=== PATIENT | male | born 1980 ===

== ENCOUNTER 2020-11-15 11:35 | Outpatient (REF) | payer OTHER, SELFPAY ==
[2020-11-15 13:51] LABS: Alanine Aminotransferase 27 U/L (0-40); Albumin Level 4.4 g/dL (3.5-5.0); Alkaline Phosphatase 113 U/L (39-117); Anion Gap 11 (12-20); Aspartate Amino Transferase 16 U/L (5-37); Bilirubin Total 0.5 mg/dL (0.0-1.0); Blood Urea Nitrogen 11 mg/dL (9-16); Calcium 9.4 mg/dL (8.4-10.2); Carbon Dioxide 28 mmol/L (22-29); Chloride 104 mmol/L (96-108); Cholesterol 278 mg/dL; Estimated Glomerular Filt Rate > 60; Glucose Fasting 109 mg/dL (60-99); HDL Cholesterol 41 mg/dL; LDL Cholesterol Calculated 166 mg/dl; Potassium 4.3 mmol/L (3.3-5.1); Sodium 139 mmol/L (135-145); Total Protein 7.2 g/dL (6.5-8.0); Triglycerides 357 mg/dL
[2020-11-15 14:14] LABS: TSH reflex Free T4 1.03 uIU/mL (0.32-4.0)
[2020-11-16 22:12] LABS: Transglutaminase IgA 1 U/mL
== END 2020-11-15 11:36 | disposition home or self-care (01) ==
LOC: HO.WFDLDS 11:35
PROVIDERS: PCP Family Medicine; Visit Provider Family Medicine
DX: Z00.00 Encounter for general adult medical examination without abnormal findings (principal); R14.0 Abdominal distension (gaseous)
CPT/HCPCS: 36415; 80053; 80061; 83516; 84443

== ENCOUNTER 2020-12-07 12:48 | Outpatient (REF) | payer OTHER, SELFPAY ==
--- NOTE | ~2020-12-07 | XR_ITS ---
EXAMINATION: XR SHOULDER, RIGHT CLINICAL INFORMATION: Right shoulder pain. COMPARISON: None TECHNIQUE: AP external rotation, Grashey, scapular Y, and axillary views of the right shoulder. FINDINGS: Small acromioclavicular marginal osteophytes. Inferior glenohumeral joint space narrowing with marginal osteophytes. No fracture or dislocation. No osseous erosion. No abnormal soft tissue calcification. XR/XR shoulder RT min 2V IMPRESSION: [id number] glenohumeral and mild acromioclavicular osteoarthritis.
== END 2020-12-07 12:49 | disposition home or self-care (01) ==
LOC: HO.XRAY 12:48
PROVIDERS: PCP Family Medicine; Visit Provider Family Medicine
DX: M25.511 Pain in right shoulder (principal)
CPT/HCPCS: 73030

== ENCOUNTER 2020-12-13 07:00 | Outpatient (RCR) | payer OTHER, SELFPAY | END 2021-04-08 14:41 | disposition home or self-care (01) | LOC: HO.PTWFD 07:00 | PROVIDERS: PCP Family Medicine; Visit Provider Family Medicine | DX: M75.21 Bicipital tendinitis, right shoulder (principal) | CPT/HCPCS: 97110; 97140; 97161; 97530; 97535 ==

== ENCOUNTER 2023-10-23 14:23 | Outpatient (AMB) | payer OTHER, SELFPAY ==
--- NOTE | 2023-10-23 13:57 | A.OFFPC_ITS ---
Vital Signs 10/23/23 14:27 Height 5 ft 8 in Weight 280 lb BMI 42.6 BP 132/80 Blood Pressure Location Lt brachial Position Sitting Pulse 100 Pulse Source Pulse Oximeter Pulse Oximetry (%) 95 Oxygen Delivery Method Room Air Intake Visit Reasons: follow up Intake Note: Patient is here to follow up on right shoulder pain, and low energy for about a year, progressively gets worse. Patient would like refill of the diclofenac cream. Allergies oxycodone [From PERCOCET] Allergy (Unknown, Verified 10/23/23 14:30) ITCHING Medication List - Last Reconciled 10/23/23 by Vinicius Wadsworth MD diclofenac sodium 1% 2 grams topical QID 30 days Tobacco use date assessed: 10/23/23 Dental Screening Dental Screen Date: 10/23/23 Did you have a dental visit in the last 12 months?: Yes Did you have a dental problem in the last 6 months where you did not have access to dental care?: No Was dental information given to patient?: Patient has dentist HPI follow up HPI Details 43 y/o male [facility]. Has complaints of fatigue x1 year that has been progressively getting worse. Pt notes he does wake up every half hour due to his R shoulder. He states his does not notice him snore/wake up gasping for air. Also has ongoing complaints of R shoulder pain. PHQ-9 13, AMELIA-7 12 today. Pt states he is willing to give therapy a chance. HPI Comments History of Present Illness Details Documentation assistance for Vinicius Wadsworth MD, was provided by Jevon Wright, Gauge Maker Apprentice on 10/23/2023 at 2:58 PM EST. I, Dr. Wadsworth, have read, observed, and verified documentation. [facility] Medical History (Updated 10/23/23 @ 15:12 by Jevon Wright) Right shoulder pain Fracture of left clavicle Surgical History (Updated 10/23/23 @ 14:34 by Vy Riley CMA) History of right shoulder replacement Family History (Updated 10/23/23 @ 14:35 by Vy Riley CMA) Father Substance abuse in family Mother Substance abuse in family Social History Housing: House Alcohol intake: current Alcohol intake frequency: a few times a month Alcohol type: beer and hard liquor Patient Tobacco Use Status: Former Tobacco user Quit Date: Last cigarette a month ago. Cigarettes Per Day: 6 Years Smoked: 10 e-Cigarette/Vaping Use: Never Used Second Hand Smoke Exposure: No service: No Current occupational status: employed Cognitive needs: No Hearing needs: No Vision needs: No Questionnaire PHQ-9 Over the last 2 weeks, how often have you been bothered by any of the following problems? 1. Little interest or pleasure in doing things: not at all 2. Feeling down, depressed, or hopeless: several days 3. Trouble falling or staying asleep, or sleeping too much: nearly every day 4. Feeling tired or having little energy: nearly every day 5. Poor appetite or overeating: not at all 6. Feeling bad about yourself - or that you are a failure or have let yourself or your family down: several days 7. Trouble concentrating on things, such as reading the newspaper or watching television: more than half the days 8. Moving or speaking so slowly that other people could have noticed. Or the opposite - being so fidgety or restless that you have been moving around a lot more than usual: nearly every day 9. Thoughts that you would be better off or of hurting yourself in some way: not at all Total score: 13 Depression Screening Interpretation: Positive Depression Screening Done: Yes [id number] - PHQ-9 Billing: Yes Source: Developed by Drs. Gamaliel Salmon, Leslye Martinez, Yemi Carrillo and colleagues, with an educational anupam from [employer]. Thrive Questionnaire Date Thrive assessed: 10/23/23 I am a: Patient What is your living situation today?: I have a steady place to live Within the past 12 months, did the food you bought not last and you didn't have the money to get more?: Sometimes True Within the past 12 months, did you worry whether your food would run out before you got money to buy more?: Sometimes True Do you have trouble paying for medicines?: No Do you have trouble getting transportation to medical appointments?: No Do you have trouble paying your heating and electricity bill?: No Do you have trouble taking care of your child, family member or friend?: No Do you have trouble with day-to-day activities such as bathing, preparing meals, shopping, managing finances, etc.?: Yes Are you currently unemployed and looking for a job?: Yes Are you interested in more education?: Yes THRIVE Score: 2 AUDIT C Alcohol Use Questionnaire (AUDIT-C) 1. How often do you have a drink containing alcohol?: Never 3. How often do you have six or more drinks on one occasion?: Never Total Score: 0 AMELIA-7 AMB Questionnaire AMELIA-7 Date AMELIA - 7 assessed: 10/23/23 Feeling nervous, anxious, or on edge: 3 = Nearly every day Not being able to stop or control worryin = Several days Worrying too much about different things: 0 = Not at all Trouble relaxin = Nearly every day Being so restless that it is hard to sit still: 2 = More than half the days Becoming easily annoyed or irritable: 3 = Nearly every day Feeling afraid as if something awful might happen: 0 = Not at all Total AMELIA-7 score (0-4 normal; 5-9 mild; 10-14 moderate; 15-21 severe): 12 Source: Developed by Drs. Gamaliel Salmon, Leslye Martinez, Yemi Carrillo and colleagues, with an educational anupam from [employer]. AMELIA-7 Assessment Billing AMELIA-7 Assessment Tool: AMELIA-7 Assessment 93555 Review of Systems Const Reports fatigue, Denies headache(s) and Denies weakness ENT Denies dizziness and Denies headache(s) Card Denies dyspnea Resp Denies cough, Denies dyspnea, Denies wheezing and Denies other (shortness of breath) Musc Details: R shoulder pain Denies numbness and Denies tingling Neuro Denies dizziness, Denies headache(s), Denies numbness, Denies tingling and Denies weakness Psych Reports anxiety and Reports depression Endo Reports fatigue Aller/Immun Denies wheezing Physical exam (Primary Care) Vital Signs: Last Vital Signs Pulse 100 10/23/23 14:27 BP 132/80 10/23/23 14:27 Pulse Ox 95 10/23/23 14:27 Oxygen Delivery Method Room Air 10/23/23 14:27 BMI result Body Mass Index 42.6 Tobacco/Smoking Status: Tobacco use Status Tobacco use date assessed 10/23/23 10/23/23 14:45 Patient Tobacco Use Status Former Tobacco user 10/23/23 14:45 e-Cigarette/Vaping Use Never Used 10/23/23 13:58 PHQ-9: PHQ-9 Score PHQ-9: Total score 13 10/23/23 14:59 Depression Screening Interpretation: Positive Thrive Assessment: Date of Thrive Assessment Date Thrive assessed 10/23/23 10/23/23 14:45 Const General: well developed; No acute distress Nutritional Appearance: well nourished Orientation/consciousness: patient oriented x3 HENMT Head: Yes normocephalic and Yes atraumatic Eyes General: appearance normal, both eyes and all related structures Pupils: Equal, round and reactive pupils present EOM: EOMs intact bilaterally Resp Effort & Inspection: normal respiratory effort Auscultation: clear to auscultation bilaterally Cardio Rate: regular rate Rhythm: regular rhythm Heart sounds: S1 normal heart sound present, S2 normal heart sound present, no gallops, no murmurs and no rubs Neuro General: patient oriented x3 and gait normal Cranial nerves: Yes Equal, round and reactive pupils present Psych Affect: normal affect Assessment and Plan Assessment & Plan (1) Right shoulder pain: Code(s): M25.511 - Pain in right shoulder Plan: Ongoing?right?shoulder?pain Patient?is?s/p?right?shoulder?replacement?but?also?s /p?fall?and?injury?is?a?worker's?comp?injury He?is?awaiting?further?evaluation?and?treatment. Meantime?I?gave?him?a?script?for?cyclobenzaprine?and?diclofenac?gel (2) Fatigue: Code(s): R53.83 - Other fatigue Plan: Significant?fatigue?and?daytime?sleepiness. Patient?says?he?wakes?up?very?frequently?at?night He?attributes?waking?up?to?his?shoulder?pain Will?give?him?a?short?course?of?muscle?relaxant?as?above?as?well?as?topical?pain ?reliever I?am?concerned?that?he?may?have?sleep?apnea?however - see?below Checking?labs?and?we?can?follow-up?on?this?at?his?next?visit (3) Hypersomnia: Code(s): G47.10 - Hypersomnia, unspecified Plan: Hypersomnia?which?may?be?due?to?poor?sleep?secondary?to?pain?but?may?be?due?to?s leep?apnea Referred?to?Sleep?Medicine?to?rule?this?out (4) Depression with anxiety: Code(s): F41.8 - Other specified anxiety disorders Plan: Scoring?high?on?PHQ-9?and?amelia?7 He?declines?medication?at?this?time?but?accepts?a?referral?for?therapy?so?I?have ?referred?him?to?the?nurse?navigator?to?help?connect?him?with?a?therapist. Orders: Orders Comprehensive Met. Panel Today R53.83 - Other fatigue Complete Blood Count Auto Diff Today R53.83 - Other fatigue, Z00.00 - Encounter for general adult medical examination without abnormal findings Erythrocyte Sedimentation Rate Today R53.83 - Other fatigue CRP High Sensitivity Today R53.83 - Other fatigue Testosterone, Free/Total Today R53.83 - Other fatigue TSH reflex Free T4 Today R53.83 - Other fatigue, Z00.00 - Encounter for general adult medical examination without abnormal findings Referrals Sleep Medicine Referral G47.10 - Hypersomnia, unspecified Nurse Navigator Referral F41.8 - Other specified anxiety disorders Medications: Changed From cyclobenzaprine 10 mg PO TID 10 days PRN 30 tabs 0RF muscle spasm To cyclobenzaprine 10 mg PO TID 5 days PRN 15 tabs 0RF muscle spasm Refilled diclofenac sodium 1% apply to single shoulder, elbow, wrist or hand; for hand includes palm/fingers/back of hand 2 grams topical QID 30 days 100 grams 2RF Coding Level of Care Code Est Pt Level 4 (71362) Diagnoses Right shoulder pain M25.511 Fatigue R53.83 Hypersomnia G47.10 Depression with anxiety F41.8 Additional Codes AMELIA-7 Assessment Billing - AMELIA-7 Assessment Tool: AMELIA-7 Assessment [id number] ([id number])
[2023-10-23 14:27] VITALS: BP 132/80; PULSE 100; O2SAT 95; BMI 42.6
== END 2023-10-23 15:20 | disposition home or self-care (01) ==
PROVIDERS: PCP Family Medicine; Visit Provider Family Medicine
DX: M25.511 Pain in right shoulder (principal); R53.83 Other fatigue; G47.10 Hypersomnia, unspecified; F41.8 Other specified anxiety disorders
CPT/HCPCS: 99214

== ENCOUNTER 2023-11-19 07:52 | Outpatient (REF) | payer OTHER, SELFPAY ==
[2023-11-19 08:01] LABS: MANUAL DIFF FLAG NO
[2023-11-19 08:41] LABS: Basophils Absolute Auto 0.1 X10*3/uL (0.0-0.2); Eosinophils Absolute Auto 0.6 X10*3/uL (0.0-0.4); Eosinophils Percent Auto 7.3 % (0-4); Hematocrit 44.4 % (42.0-52.0); Imm Gran Abs Auto 0.03 X10*3/uL (0.00-0.03); Imm Gran Pct Auto 0.4 % (0.0-0.4); Lymphocytes Absolute Auto 2.6 X10*3/uL (1.2-4.9); Lymphocytes Percent Auto 30.5 % (20-40); Mean Corpuscular HGB Conc 33.8 g/dl (31.0-36.0); Mean Corpuscular Hemoglobin 29.8 pg (27.0-33.0); Mean Corpuscular Volume 88.1 fL (80.0-98.0); Mean Platelet Volume 9.9 fL (9.4-12.4); Monocytes Absolute Auto 0.6 X10*3/uL (0.1-1.2); Neutrophils Absolute Auto 4.5 x10*3/uL (2.0-8.3); Neutrophils Percent Auto 53.8 % (45-73); Platelet Count 323 X10*3/uL (160-400); Red Blood Count 5.04 X10*6/uL (4.60-5.80); Red Cell Distribution Width 13.2 % (11.0-16.0); White Blood Count 8.4 X10*3/uL (4.8-10.8)
[2023-11-19 09:09] LABS: Alanine Aminotransferase 34 U/L (0-40); Albumin Level 4.1 g/dL (3.5-5.0); Alkaline Phosphatase 106 U/L (39-117); Anion Gap 12 (12-20); Aspartate Amino Transferase 18 U/L (5-37); Bilirubin Total 0.4 mg/dL (0.0-1.0); Blood Urea Nitrogen 13 mg/dL (9-16); Calcium 9.6 mg/dL (8.4-10.2); Carbon Dioxide 26 mmol/L (22-29); Chloride 106 mmol/L (96-108); Estimated Glomerular Filt Rate > 60; Glucose Random 125 mg/dL (60-115); Sodium 140 mmol/L (135-145); Total Protein 7.3 g/dL (6.5-8.0)
[2023-11-19 09:24] LABS: Erythrocyte Sedimentation Rate 13 MM/HR (0-15)
[2023-11-19 09:29] LABS: TSH reflex Free T4 1.89 uIU/mL (0.32-4.0)
[2023-11-20 10:38] LABS: CRP High Sensitivity 8.4 mg/L
[2023-11-23 18:03] LABS: Testosterone, Free 57.1 pg/mL (35.0-155.0); Testosterone, Total 317 ng/dL (250-1100)
== END 2023-11-19 07:53 | disposition home or self-care (01) ==
LOC: HO.LAB 07:52
PROVIDERS: PCP Family Medicine; Visit Provider Family Medicine
DX: Z00.00 Encounter for general adult medical examination without abnormal findings (principal); R53.83 Other fatigue
CPT/HCPCS: 36415; 80053; 84402; 84403; 84443; 85025; 85652; 86141

== ENCOUNTER 2023-11-20 14:58 | Outpatient (AMB) | payer OTHER, SELFPAY ==
--- NOTE | 2023-11-20 14:53 | A.OFFPC_ITS ---
Intake Visit Reasons: f/u labs via telemedicine Intake Note: Patient is scheduled for lab review today. 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 Allergies oxycodone [From PERCOCET] Allergy (Unknown, Verified 11/20/23 14:54) ITCHING Medication List - Last Reconciled 11/20/23 by Vinicius Wadsworth MD diclofenac sodium 1% 2 grams topical QID 30 days Tobacco use date assessed: 10/23/23 Dental Screening Dental Screen Date: 11/20/23 Did you have a dental visit in the last 12 months?: Yes Did you have a dental problem in the last 6 months where you did not have access to dental care?: No Was dental information given to patient?: Patient has dentist HPI f/u labs via telemedicine HPI Details 43 y/o male presents to f/u fatigue/achy muscles and labs via telemedicine. Labs were drawn 11/19/23. Reviewed labs with pt. Labs unrevealing for fatigue. Had referred him to Sleep Medicine - hypersomnia and non restorative sleep. She has an appt. with sleep medicine in February. [facility] Medical History Right shoulder pain Fracture of left clavicle Surgical History History of right shoulder replacement Family History Father Substance abuse in family Mother Substance abuse in family Social History Housing: House Alcohol intake: current Alcohol intake frequency: a few times a month Alcohol type: beer and hard liquor Patient Tobacco Use Status: Former Tobacco user Cigarettes Per Day: 6 Years Smoked: 10 Packs per year/per ci.00 e-Cigarette/Vaping Use: Never Used Second Hand Smoke Exposure: No service: No Current occupational status: employed Cognitive needs: No Hearing needs: No Vision needs: No Questionnaire Thrive Questionnaire Date Thrive assessed: 10/23/23 AMELIA-7 AMB Questionnaire AMELIA-7 Date AMELIA - 7 assessed: 10/23/23 Source: Developed by Drs. Gamaliel Salmon, Leslye Martinez, Yemi Carrillo and colleagues, with an educational anupam from [employer]. Review of Systems Const Denies chills, Denies fatigue, Denies fever(s), Denies headache(s) and Denies weakness ENT Denies dizziness and Denies headache(s) Card Denies dyspnea Resp Denies cough, Denies dyspnea, Denies wheezing and Denies other (shortness of breath) Musc Denies numbness and Denies tingling Neuro Denies dizziness, Denies headache(s), Denies numbness, Denies tingling and Denies weakness Psych Denies anxiety and Denies depression Endo Denies fatigue Aller/Immun Denies wheezing Physical exam (Primary Care) Tobacco/Smoking Status: Tobacco use Status Tobacco use date assessed 10/23/23 11/20/23 14:57 Patient Tobacco Use Status Former Tobacco user 11/20/23 14:57 e-Cigarette/Vaping Use Never Used 11/20/23 14:57 Thrive Assessment: Date of Thrive Assessment Date Thrive assessed 10/23/23 11/20/23 14:57 Telehealth Telehealth Telehealth Platform: Telephone Location of provider rendering services: practice address Location of patient: address on file Patient Identification confirmed using: Name, : Yes Telehealth method: voice only Patient verbally consented to treatment: Yes Patient verbally consented to billing insurance company: Yes Patient informed of any privacy concerns related to visit: Yes Minutes spent on Phone/Video with Pt.: 6 Assessment and Plan Assessment & Plan (1) Fatigue: Code(s): R53.83 - Other fatigue Plan: No?anemia?and?thyroid?levels?are?okay Awaiting?testosterone?levels?and?will?call?patient?if?abnormal Random?blood?sugar?is?elevated?as?it?has?been?elevated?previously. Will?follow- up?on?this?at?his?next?visit?but?I?doubt?this?is?the?underlying?cause?of?his?fat igue He?does?have?an?elevated?CRP?and?also?his?eosinophils?are?somewhat?elevated. Possible?allergy.??He?can?trial?Zyrtec. Ultimately?still?suspect?that?this?is?due?to?sleep?apnea?and?I?have?referred?him ?to?Sleep?Medicine.??Has?an?appointment?in?February?and?we?can?follow- up?after?that. (2) Hypersomnia: Code(s): G47.10 - Hypersomnia, unspecified Plan: As?above,?patient?has?an?appointment?with?sleep?medicine?in?February Coding Level of Care Code Tele Est Pt Level 2 (76527) Diagnoses Fatigue R53.83 Hypersomnia G47.10
== END 2023-11-20 16:35 | disposition home or self-care (01) ==
LOC: HO.HMGFM 14:58
PROVIDERS: PCP Family Medicine; Visit Provider Family Medicine
DX: R53.83 Other fatigue (principal); G47.10 Hypersomnia, unspecified
CPT/HCPCS: 99441

== ENCOUNTER 2024-07-04 10:13 | Outpatient (AMB) | payer OTHER, SELFPAY | END 2024-07-04 17:05 | disposition home or self-care (01) | PROVIDERS: PCP Family Medicine; Visit Provider Family Medicine ==

== ENCOUNTER → 2024-07-04 10:13 | Outpatient (BNVA) | payer SELFPAY | PROVIDERS: PCP Family Medicine; Visit Provider Family Medicine ==

== ENCOUNTER 2024-08-26 06:29 | Outpatient (REF) | payer OTHER, SELFPAY ==
[2024-08-26 06:42] LABS: MANUAL DIFF FLAG NO
[2024-08-26 07:16] LABS: Basophils Absolute Auto 0.1 X10*3/uL (0.0-0.2); Basophils Percent Auto 0.9 % (0-2); Eosinophils Absolute Auto 0.6 X10*3/uL (0.0-0.4); Eosinophils Percent Auto 5.7 % (0-4); Hematocrit 45.4 % (42.0-52.0); Hemoglobin 15.2 g/dl (14.0-18.0); Imm Gran Abs Auto 0.04 X10*3/uL (0.00-0.03); Imm Gran Pct Auto 0.4 % (0.0-0.4); Lymphocytes Absolute Auto 3.2 X10*3/uL (1.2-4.9); Lymphocytes Percent Auto 32.6 % (20-40); Mean Corpuscular HGB Conc 33.5 g/dl (31.0-36.0); Mean Corpuscular Hemoglobin 29.1 pg (27.0-33.0); Mean Corpuscular Volume 86.8 fL (80.0-98.0); Mean Platelet Volume 9.6 fL (9.4-12.4); Monocytes Absolute Auto 0.7 X10*3/uL (0.1-1.2); Monocytes Percent Auto 6.9 % (2-11); Neutrophils Absolute Auto 5.2 x10*3/uL (2.0-8.3); Neutrophils Percent Auto 53.5 % (45-73); Platelet Count 354 X10*3/uL (160-400); Red Blood Count 5.23 X10*6/uL (4.60-5.80); Red Cell Distribution Width 13.1 % (11.0-16.0); White Blood Count 9.7 X10*3/uL (4.8-10.8)
[2024-08-26 07:24] LABS: Estimated Average Glucose 114 mg/dL; Hemoglobin A1C 149.8935 umol/L; Hemoglobin A1c % 5.6 % (<6.0); Total Hemoglobin (HGBA1C) 3975.3293 umol/L
[2024-08-26 07:41] LABS: Alanine Aminotransferase 39 U/L (0-40); Albumin Level 4.1 g/dL (3.5-5.0); Alkaline Phosphatase 101 U/L (39-117); Anion Gap 10 (12-20); Aspartate Amino Transferase 23 U/L (5-37); Bilirubin Total 0.6 mg/dL (0.0-1.0); Blood Urea Nitrogen 15 mg/dL (9-16); Calcium 9.2 mg/dL (8.4-10.2); Carbon Dioxide 25 mmol/L (22-29); Chloride 109 mmol/L (96-108); Estimated Glomerular Filt Rate > 60; Glucose Fasting 107 mg/dL (60-99); Sodium 140 mmol/L (135-145); Total Protein 7.3 g/dL (6.5-8.0)
== END 2024-08-26 06:30 | disposition home or self-care (01) ==
LOC: HO.LAB 06:29
PROVIDERS: PCP Family Medicine; Visit Provider Family Medicine
DX: Z00.00 Encounter for general adult medical examination without abnormal findings (principal); R53.83 Other fatigue; R73.01 Impaired fasting glucose
CPT/HCPCS: 36415; 80053; 83036; 85025